=== PATIENT | male | born 1985 | race Caucasian/White ===

== ENCOUNTER 2017-09-05 05:15 | Day surgery (SDC) | payer OTHER ==
[~2017-09-05] VITALS: Ht 167.6 cm; Wt 101.2 kg
--- NOTE | ~2017-09-05 | S ---
[facility] [place] [address] SURGICAL PATH RPT PROCEDURE Name: CHENTE BENITEZ Room #: DEP [facility]..#: [id number] Admission: 09/05/17 Date of : 81 Discharge: 09/06/17 Report #: [id number] Path Case #: [id number] PATHOLOGY REPORT COLLECTION DATE: 09/05/2017 RECEIVED DATE: 09/05/2017 SUBMITTING PHYS: Dr. Rony Holland OTHER PHYS: SPECIMEN(S) RECEIVED: A.Gallbladder * * * * * * * * * * * * FINAL DIAGNOSIS: Gallbladder, cholecystectomy: - Mild chronic cholecystitis. - Cholelithiasis. PATHOLOGIST: Tricia Gonzalez M.D. REPORT ELECTRONICALLY SIGNED BY: Tricia Gonzalez M.D. DATE/TIME: 09/07/2017 15:22 * * * * * * * * * * * * GROSS PATHOLOGY: Received in formalin labeled "Chente Benitez, gallbladder," is a 7.9 x 2.8 x 3.0 cm, previously punctured gallbladder with dark green, wrinkled, and slightly vascular serosal surfaces. Opening the gallbladder reveals dark green, velvety mucosa and an average wall thickness of 0.2 cm. Calculi are present, measuring 1.7 cm in maximum dimension, possessing a dark green and granular appearance, and feeling firm to the touch. No masses are noted grossly. Music Agent sections from the body and fundus are submitted along with the proximal margin in cassette A1. (TSD; 09/05/2017) CLINICAL HISTORY: Abdominal pain INITIAL CPT CODE(S): A; 09309 Professional services performed by [facility] at [facility] [address] , [place] [address] Technical services performed by [facility] at [address] [place] [address] [address] [place] [address] SURGICAL PATH RPT PROCEDURE Name: CHENTE BENITEZ Room #: DEP [facility] [place]vette#: [id number] Admission: 09/05/17 Date of : 81 Discharge: 09/06/17 Report #: [id number] Path Case #: [id number] [address]. [facility] [address] [address] PHONE: [phone] DIRECTOR: Terry Arredondo M.D. * * * END OF REPORT * * *
--- NOTE | ~2017-09-05 | O ---
[facility] [place] [address] OPERATIVE REPORT Name: KATHY BENITEZ Room #: 418-P [facility]#: [id number] Admission: 09/05/17 Attend Phys: Rony Holland MD Discharge: Date of : 81 Report #: [id number] THIS REPORT FOR: //name// CC: XOCHITL SHARMA MD [facility] physician/PCP Rony Holland DATE OF SERVICE: 09/05/2017 PATIENT OF: Dr. Rony Holland and Dr. Xochitl Sharma. PREOPERATIVE DIAGNOSES: Cholelithiasis, cholecystitis, and biliary colic. POSTOPERATIVE DIAGNOSES: Cholelithiasis, cholecystitis, and biliary colic. PROCEDURE: Laparoscopic cholecystectomy. SURGEON: Rony Holland MD CHAIRMAN: DAVID Ahmadi. ANESTHESIA: General. The patient was brought to the operating room and placed on operative table in the supine position. Sequential compression devices were in place for DVT prophylaxis. The patient received an appropriate preoperative dose of Mefoxin. The patient underwent a general endotracheal anesthesia and the abdomen was then prepped and draped in a sterile fashion. Skin and subcutaneous tissue around the umbilicus was then infiltrated with 0.5% Marcaine. An infraumbilical skin incision was then performed using #11 scalpel blade. Hemostasis obtained using electrocautery. Dissection was carried down through subcutaneous tissue to the fascia, which was then incised with the Metzenbaum scissors and the peritoneum was entered and a pursestring suture of 0 Vicryl was then placed in the fascia. A 12-mm disposable Heidy port was then inserted through the opening and held into place with the balloon port and the pursestring suture. Pneumoperitoneum obtained to a level of 10-15 mmHg. Laparoscope was then inserted through this port and exploration was performed, which revealed a somewhat thickened dilated gallbladder. There were no other intraabdominal abnormalities. Two lateral 5-mm Surgiports as well as an upper midline 11-mm Surgiport were all inserted under direct visualization after infiltration with 0.5% Marcaine. Gallbladder was then grasped and retracted superiorly and the cystic duct and artery were dissected free. The cystic common bile duct junction was clearly identified. The cystic artery had a posterior branch to it. The cystic artery and its posterior branch were dissected free and doubly clipped on each side and divided with the scissors. The cystic duct was then triply clipped on the common bile duct side and doubly clipped on the gallbladder side and divided with the [address] [address] OPERATIVE REPORT Name: KATHY BENITEZ Room #: 418-P [facility]#: [id number] Admission: 09/05/17 Attend Phys: Rony Holland MD Discharge: Date of : 81 Report #: [id number] scissors. The gallbladder was then dissected free from the bed using the hook electrocautery. Prior to completing the dissection, the gallbladder was retracted superiorly and the bed inspected for hemostasis, which was obtained using electrocautery and found to be intact. The gallbladder was then transected and brought out through the periumbilical port and sent as specimen to pathology. Port was then returned to the abdomen. The area was then copiously irrigated with warm saline solution, which was suctioned free. Hemostasis was checked and found to be intact. The ports were then all removed under direct visualization, hemostasis intact at each port site. Pneumoperitoneum was released and the periumbilical port was then also removed under direct visualization, hemostasis intact at that port site as well. The periumbilical fascia was then closed using the 0 Vicryl pursestring suture. The upper midline fascia was then closed using a [id number] 0 Vicryl suture and the skin then closed with interrupted vertical mattress 5-0 nylon sutures and the wound was dressed with Band-Aids. The patient was then awakened from the general endotracheal anesthesia, extubated, and taken to recovery room in good condition. Estimated blood loss was approximately 5-10 mL and the patient tolerated the procedure well. All sponge, lap and instrument counts correct times 2. By: [id number] Rony Holland MD /nt
[2017-09-05 09:28] VITALS: BP 105/64
[2017-09-05] MEDS ORDERED: NORCO 5-325 TA1 EAC1 PO (10:20)
[2017-09-05] MEDS ORDERED: ONDANSETRON HCL4 M2 PO (11:39)
[2017-09-05 19:25] VITALS: BP 121/71
[2017-09-06 04:03] VITALS: BP 101/58
[2017-09-06 08:00] VITALS: BP 103/61
[2017-09-06 08:28] VITALS: BP 101/58
== END 2017-09-06 11:39 | disposition home or self-care (01) ==
LOC: OR 05:15 → TBA 05:15 → OR 12:45 → 4E 17:59 → ENTRNSPT 09-06 11:34 → OR 09-06 11:39
DX: K80.60 Calculus of gallbladder and bile duct with cholecystitis, unspecified, without obstruction (principal); Z88.0 Allergy status to penicillin; Z88.2 Allergy status to sulfonamides; Z79.891 Long term (current) use of opiate analgesic; K21.9 Gastro-esophageal reflux disease without esophagitis; Z98.890 Other specified postprocedural states
CPT/HCPCS: 50010; 50101; 50411; 50555; 50558; 51474; 51489; 52266; 53314; 56462; 56524; 56528; 62110; 62900; 70005